=== PATIENT | male | born 1990 | race Hispanic/Latino ===

== ENCOUNTER → 2018-05-08 | Outpatient (CLI) | payer BC | END | disposition home or self-care (01) | LOC: RAH 12:26 | PROVIDERS: ATTEND Family Medicine | DX: N44.2 Benign cyst of testis (principal) | CPT/HCPCS: 76870 ==

== ENCOUNTER → 2018-08-03 | Outpatient (CLI) | payer BC | END | disposition home or self-care (01) | LOC: RAH 10:10 | PROVIDERS: ATTEND Family Medicine | DX: I86.1 Scrotal varices (principal) | CPT/HCPCS: 76870 ==

== ENCOUNTER → 2021-06-04 | Outpatient (CLI) | payer BC | END | disposition home or self-care (01) | LOC: RAH 11:19 | PROVIDERS: ATTEND Internal Medicine | DX: I86.1 Scrotal varices (principal); N50.3 Cyst of epididymis | CPT/HCPCS: 76870 ==